=== PATIENT | female | born 1930 | race Caucasian/White ===

== ENCOUNTER → 2017-09-26 | Outpatient (CLI) | payer MEDICARE, BC ==
[~2017-09-26] MED LIST: AMBIEN PO; AUGMENTIN PO; MECLIZINE HCL PO; NOCURR
== END | disposition home or self-care (01) ==
LOC: RADPV 10:39
PROVIDERS: ATTEND Orthopaedic Surgery Hand Surgery
DX: M19.032 Primary osteoarthritis, left wrist (principal); M79.89 Other specified soft tissue disorders